=== PATIENT | female | born 1975 | race Caucasian/White ===

== ENCOUNTER 2017-05-06 08:50 | Day surgery (SDC) | payer MEDICARE, OTHER ==
[~2017-05-06] VITALS: Ht 165.1 cm; Wt 149.7 kg
[~2017-05-06 08:50] MED LIST: ACETAMINOPHEN-1 EAC1 PO; ASPIRIN EC81 MG PO; ATIVAN1 MG PO; AUGMENTIN 875-1 EACH PO; BREO ELLIPTA 21 EACH IH; CALCIUM500 MG PO; CETIRIZINE HCL10 MG PO; DAILY MULTIPLE1 EACH PO; DULERA 100 MCG/13 GM INH; EFFEXOR XR150 MG PO; FUROSEMIDE40 MG PO; HYDROXYZINE HCL25 MG PO; LATUDA80 MG PO; LEVOTHYROXINE100 MCG PO; LISINOPRIL-HCT1 EAC2 PO; LOMOTIL TABLET1 EACH PO; LORAZEPAM1 MG PO; METOCLOPRAMIDE10 MG PO; MIRENA1 EACH IY; MIRTAZAPINE45 MG PO; ONDANSETRON ODT4 MG SL; POTASSIUM CHLO20 ME1 PO; PROMETHAZINE HC25 M1 PO; SIMBRINZA 1%-0.28 ML OPTH; SPIRIVA18 MCG INH; VITAMIN C500 M4 PO
--- NOTE | 2017-05-06 12:41 | NUR ---
05/06/17 1241 Mike Melton 1234: O2 CHANGED TO BB.
--- NOTE | 2017-05-06 13:28 | NUR ---
PT REPORTS "SOME NAUSEA THAT ISNT GOING AWAY" IV MED GIVEN. PT RESTING IN BED WATCHING TV.
[2017-05-06] MEDS ORDERED: NORCO 5-325 TA1 EACH PO (13:32)
--- NOTE | 2017-05-06 13:51 | NUR ---
PT STATES "THE NAUSEA IS A LITTLE BETTER" PT UP TO THE BATHROOM WITH FRANCESCA ASST. TOLERATED WELL WITH A LARGE VOID NOTED. PT BACK TO BED AND C/O 7/10 PAIN IN ABD. IV MED GIVEN AND PT RESTING IN BED.
--- NOTE | 2017-05-06 14:31 | NUR ---
PT DENIES NAUSEA. PO PAIN MEDS GIVEN AFTER TOLERATING WATER AND CHICKEN NOODLE SOUP.
--- NOTE | 2017-05-07 08:00 | OR ---
[facility] [address] [place], [place] [address] Signed DATE OF PROCEDURE: 05/06/17 PREOPERATIVE DIAGNOSIS: Chronic cholecystitis. POSTOPERATIVE DIAGNOSES Chronic cholecystitis. Cholesterolosis. PROCEDURE Laparoscopic cholecystectomy without intraoperative cholangiogram. ESTIMATED BLOOD LOSS: None. FINDINGS Joyce had fatty infiltration of her liver. She also had obvious cholesterolosis of the gallbladder. We were not able to pass the intraoperative cholangiocatheter through the valves of Leon, although we made multiple attempts and several nicks on the cystic duct. Consequently, we abandoned the intraoperative cholangiogram. INDICATIONS Joyce is a 41-year-old female at 5 foot 5 inches, 315 pounds. She has a body mass index of 52. At one point, she weighed over 400 pounds. She has been living over in [place], [place]. At that time, she was having trouble with right upper quadrant abdominal pain and ended up with a negative ultrasound. The HIDA scan, however, was positive. The surgeon asked her to lose weight before an elective surgery. In the meantime, she moved out to [facility] and lost weight and is down to 315 pounds. She continues to have symptoms associated with the right upper quadrant radiating through to her back. She said it is worse after meals. She states fats bad and so is pork. She had been to her primary care provider. A repeat ultrasound w a s negative. She was then asked to see me as a local general surgeon. We sent her for repeat HIDA scan and her gallbladder did not contract whatsoever. Eating the fatty meal reproduced her symptoms. I met with Joyce in the office and I gave her a pamphlet on the gallbladder. We discussed its location and function. We discussed laparoscopic versus open cholecystectomy. She understands expected intra and postop course. There is risk of surgery including, but not limited to bleeding, infection, scarring, change in contour of the skin, damage to bowel, damage to main bile duct, and incisional hernias. She had expressed understanding and wished to proceed. PROCEDURE NOTE Joyce was taken into our operating room and placed in the supine position under genera l endotracheal tube anesthesia. She was given preoperative antibiotics along with subcutaneous heparin. SCDs were utilized. She was then prepped and draped in the usual Electronically Signed By: CARMENZA GARVIN MD 05/07/17 0800 PATIENT NAME: JOYCE APARICIO OPERATIVE REPORT DATE OF : 71 PHYSICIAN: CARMENZA GARVIN MD REPORT #: [id number] REPORT IS CONFIDENTIAL AND NOT TO BE RELEASED WITHOUT AUTHORIZATION [facility] [address] [place] [place], [place] [address] Signed sterile fashion. All trocars were then placed in usual positions under direct visualization of camera without difficulty. The gallbladder was grasped and elevated in the right upper quadrant. We made a small hole in the side of the gallbladder and suctioned out dark green bile to better access her triangle of Calot. The triangle of Calot was deep underneath the liver. It took a few minutes to dissect out the triangle of Calot. A clip had been placed on the cystic artery and it had been divided. We opened the cystic duct in 3 separate locations and each time we encountered the valves of Vaughn wilson. We made multiple attempts, we could not get our intraoperative cholangiocatheter pass through this area. Consequently, we secured the cystic duct stump with a PDS Endoloop and 2 clips were placed across the cystic duct stump to erin its location. After this, the gallbladder was carefully removed from the gallbladder fossa with the help of the cautery and placed into an EndoCatch bag. We noticed a little blood coming where the intraoperative cholangiocatheter had been inserted through the abdominal wall. There was just a tiny hematoma next to the peritoneum. We cauterized that area with good hemostasis. We looked back at that area several times throughout the case. No additional swelling or bleeding was noted. We then irrigated out the right upper quadrant and suctioned out the area until clear. We used our laparoscopic suturing device then to pass 0 Vicryl suture on either side of the fascia of the subxiphoid trocar site. This was tied down to close this fascia primarily. The gallbladder had been placed in to an EndoCatch bag and it was taken out through the supraumbilical trocar site. All the other trocars were removed. All the gas was allowed to escape. We used interrupted simple and [id number] 0 Vicryl suture to close the fascia of the supraumbilical trocar site. Each trocar site was then infiltrated with local anesthetic. Each trocar site was irrigated and suctioned out until clear. The skin and dermis of each trocar site was then closed with interrupted 3-0 subcuticular Monocryl sutures. Dry gauze and tape was then applied. The gallbladder had been opened on the back table by a circulating nurse. She had significant cholesterolosis. Joyce was then awakened from anesthesia, extubated in the OR, taken to recovery room in stable condition. MD GHULAM Watts/Modl /[id number] Electronically Signed By: CARMENZA GARVIN MD 05/07/17 0800 PATIENT NAME: JOYCE APARICIO OPERATIVE REPORT DATE OF : 71 PHYSICIAN: CARMENZA GARVIN MD REPORT #: [id number] REPORT IS CONFIDENTIAL AND NOT TO BE RELEASED WITHOUT AUTHORIZATION [address], [place] [address] Signed cc: Leona Sutton PA-C Electronically Signed By: CARMENZA GARVIN MD 05/07/17 0800 PATIENT NAME: JOYCE APARICIO OPERATIVE REPORT DATE OF : 71 PHYSICIAN: CARMENZA GARVIN MD REPORT #: [id number] REPORT IS CONFIDENTIAL AND NOT TO BE RELEASED WITHOUT AUTHORIZATION
== END 2017-05-06 15:10 | disposition home or self-care (01) ==
LOC: DS 08:50
PROVIDERS: Colon & Rectal Surgery
PROC: BF12YZZ Fluoroscopy of Gallbladder using Other Contrast (ICD-10-PCS; 2017-05-06)
PROC: 0FT44ZZ Resection of Gallbladder, Percutaneous Endoscopic Approach (ICD-10-PCS; principal; 2017-05-06 09:45)
DX: K81.1 Chronic cholecystitis (principal); E03.9 Hypothyroidism, unspecified; J44.9 Chronic obstructive pulmonary disease, unspecified; E66.9 Obesity, unspecified; G93.2 Benign intracranial hypertension; K58.9 Irritable bowel syndrome, unspecified; Z86.718 Personal history of other venous thrombosis and embolism; Z86.711 Personal history of pulmonary embolism; Z85.828 Personal history of other malignant neoplasm of skin; Z98.890 Other specified postprocedural states; Z87.891 Personal history of nicotine dependence; Z79.899 Other long term (current) drug therapy; Z91.040 Latex allergy status; Z88.8 Allergy status to other drugs, medicaments and biological substances; Z68.43 Body mass index [BMI] 50.0-59.9, adult
CPT/HCPCS: 00790; 88304; J0330; J0690; J1100; J1644; J1885; J2250; J2405; J2550; J2704; J2710; J2765; J3010; J7120

== ENCOUNTER 2017-05-07 14:28 | Emergency (ER) | payer MEDICARE, OTHER ==
[~2017-05-07] VITALS: Ht 165.1 cm; Wt 149.7 kg
[~2017-05-07 14:28] MED LIST changes: +NORCO 5-325 TA1 EACH PO
== END 2017-05-07 14:53 | disposition home or self-care (01) ==
LOC: ED 14:28
DX: K91.89 Other postprocedural complications and disorders of digestive system (principal); Z00.8 Encounter for other general examination

== ENCOUNTER 2021-09-29 09:40 | Emergency (ER) | payer MEDICARE, OTHER ==
[~2021-09-29] VITALS: Ht 165.1 cm; Wt 167.8 kg
[~2021-09-29 09:40] MED LIST changes: +KLOR-CON 1010 MEQ PO
--- OUTSIDE RECORDS SUMMARY | 2021-09-29 09:44 | XMS ---
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 ED/UCC VISIT TRACKING (12 MO.) 09/29/2021 09:[address] [facility] [place] TYPE: Emergency COMPLAINT: - EAR PAIN INPATIENT VISIT TRACKING (12 MO.) No inpatient visits to display in this time frame [email or web address]
[2021-09-29] MEDS ORDERED: ONDANSETRON ODT4 MG PO (10:03)
[2021-09-29] MEDS ORDERED: PRAZOSIN HCL1 MG PO (10:04)
[2021-09-29] MEDS ORDERED: TIZANIDINE HCL4 MG PO (10:04)
[2021-09-29] MEDS ORDERED: DESVENLAFAXINE50 M3 PO (10:04)
[2021-09-29] MEDS ORDERED: LATUDA80 MG PO (10:04)
[2021-09-29] MEDS ORDERED: ACETAZOLAMIDE125 MG PO (10:05)
[2021-09-29] MEDS ORDERED: LORAZEPAM1 MG PO (10:05)
[2021-09-29] MEDS ORDERED: SPIRONOLACTONE25 MG PO (10:05)
[2021-09-29] MEDS ORDERED: VERAPAMIL SR240 MG PO (10:06)
[2021-09-29] MEDS ORDERED: HYDROCODON-ACE1 EA11 PO (10:08)
[2021-09-29] MEDS ORDERED: AMOXICILLIN500 MG PO (10:08)
== END 2021-09-29 10:19 | disposition home or self-care (01) ==
LOC: ED 09:40
DX: H66.91 Otitis media, unspecified, right ear (principal); Z86.718 Personal history of other venous thrombosis and embolism; K58.9 Irritable bowel syndrome, unspecified; Z87.891 Personal history of nicotine dependence; Z91.048 Other nonmedicinal substance allergy status; Z91.040 Latex allergy status; Z88.5 Allergy status to narcotic agent; Z88.8 Allergy status to other drugs, medicaments and biological substances; Z88.7 Allergy status to serum and vaccine; Z91.018 Allergy to other foods; Z79.899 Other long term (current) drug therapy
CPT/HCPCS: 99282

== ENCOUNTER 2023-02-05 06:52 | Day surgery (SDC) | payer MEDICARE, OTHER ==
[2023-01-28 15:40] VITALS: BP 169/97
[~2023-02-05] VITALS: Ht 162.6 cm; Wt 165.4 kg
--- NOTE | ~2023-02-05 | OR ---
[facility] [address] [place], [place] [address] Draft DATE OF OPERATION: 02/05/2023 SURGEON: Isac Julien MD Patient of Dr. Julien. PREOPERATIVE DIAGNOSIS: Missing IUD strings, possible malposition of IUD. POSTOPERATIVE DIAGNOSIS: Missing IUD strings. PROCEDURE: Hysteroscopic removal of IUD. SINGLE END SEWER: Christian Smith DO ANESTHESIA: Monitored anesthesia care. ESTIMATED BLOOD LOSS: Less than 5 mL. SPECIMEN: None. DRAINS: None. PACKING: None. FINDINGS: Normal external genitalia. Normal vagina. Normal small cervix. No IUD string seen in the os. On hysteroscopic exam, the IUD was noted to be in the lower uterine segment and upper cervical canal with twisted strings around the base of the IUD. COMPLICATIONS: None. PATIENT NAME: JOYCE APARICIO OPERATIVE REPORT DATE OF : 71 REPORT #: [id number] PHYSICIAN: ISAC JULIEN MD PCP: DANIEL PERKINS MD REPORT IS CONFIDENTIAL AND NOT TO BE RELEASED WITHOUT AUTHORIZATION [facility] [address] [place] [id number] Draft DESCRIPTION OF PROCEDURE: The patient was brought to the operating room, placed in the supine position. After adequate general anesthesia was obtained, she was placed in dorsal lithotomy position, prepped and draped in usual sterile fashion. Zarco was emptied by straight catheterization. A weighted speculum was placed in the vagina, Aditi placed in the upper vagina and the cervix could be seen, which was very high in the pelvis and because of the patient's size it was difficult to visualize. The anterior lip of the cervix was finally seen and grasped with a single-tooth tenaculum. The posterior lip of the cervix was grasped with an Allis clamp. The cervix was then serially dilated and the hysteroscope placed in the cervical os and gently was passed through the cervical canal using the saline to help further dilate the cervix. Upon reaching the upper cervix and lower uterine segment before reaching the uterine cavity, the IUD strings were seen, so a grasper was inserted through the hysteroscope and the strings grasped with the grasper under direct visualization and the grasper slowly removed and the hysteroscope then slowly removed watching to make sure that the IUD came with the hysteroscope. This did remove the IUD from the uterus and cervix. The tenaculum and Allis clamp were then removed from the cervix. The cervix observed and noted to have good hemostasis. All other instruments were removed from the vagina. The patient tolerated the procedure well, went to recovery room in good condition. The sponge and instrument count were correct at the end of the procedure. The system had 240 mL of fluid loss, most thought to be under the . Pressure was set at 80 mmHg. The patient tolerated the procedure well, went to recovery room in good condition. The sponge and instrument counts were correct at the end of the procedure. MD MARCUS Cristobal/SHARON /[id number] cc: Daniel Perkins MD Copies: DANIEL PERKINS DMD PATIENT NAME: JOYCE APARICIO OPERATIVE REPORT DATE OF : 71 REPORT #: [id number] PHYSICIAN: ISAC JULIEN MD PCP: DANIEL PERKINS MD REPORT IS CONFIDENTIAL AND NOT TO BE RELEASED WITHOUT AUTHORIZATION [address] [address] Draft ~ PATIENT NAME: JOYCE APARICIO OPERATIVE REPORT DATE OF : 71 REPORT #: [id number] PHYSICIAN: ISAC JULIEN MD PCP: DANIEL PERKINS MD REPORT IS CONFIDENTIAL AND NOT TO BE RELEASED WITHOUT AUTHORIZATION
[~2023-02-05 06:52] MED LIST changes: +ACETAZOLAMIDE125 MG PO; +AMOXICILLIN500 MG PO; +DESVENLAFAXINE50 M3 PO; +HYDROCODON-ACE1 EA11 PO; +LEVOTHYROXINE50 MC1 PO; +ONDANSETRON ODT4 MG PO; +OSTERA TABLET1 EACH PO; +PRAZOSIN HCL1 MG PO; +SIMBRINZA 1%-0.28 M1 OP; +SKYRIZI PE150 MG/1 M SQ; +SPIRONOLACTONE25 MG PO; +TIZANIDINE HCL4 MG PO; +TROKENDI XR100 MG PO; +VENTOLIN HFA18 GM INH; +VERAPAMIL SR240 MG PO; +XALATAN2.5 ML OPTH; +ZANAFLEX4 M1 PO
[2023-02-05 07:04] VITALS: BP 158/93
[2023-02-05 10:24] VITALS: BP 124/73
--- NOTE | 2023-02-05 10:37 | NUR ---
02/05/23 1037 Sheets,Tabitha 0958 PT ARRIVED TO PACU AWAKE AND TALKING TO RN. PT REPORTS 5/10 PAIN. AND NO NAUSEA. PLAN OF CARE DISCUSSED. 0935 O2 REMOVED AND HOB INCREASED. 9820-7078 MEDICATION GIVEN PER EMAR, PT SIPPING WATER AND EATING APPLESAUCE. PT CONTINUES TO DENY CONCERNS. 1005 PT REPORT PAIN IS BETTER 3/10. PT GETTING DRESSED AND RIDE CALLED 1018 DC INSTRUCTIONS GIVEN WITH RX. ALL QUESTIONS ANSWERED. PT DC VIA WC.
== END 2023-02-05 10:18 | disposition home or self-care (01) ==
LOC: OPS 06:52 → DS 06:52 → OPS 07:30 → DS 07:30 → OPS 09:00
PROVIDERS: ATTEND General Practice
PROC: 0UPD8HZ Removal of Contraceptive Device from Uterus and Cervix, Via Natural or Artificial Opening Endoscopic (ICD-10-PCS; principal; 2023-02-05 09:00)
DX: T83.32XA Displacement of intrauterine contraceptive device, initial encounter (principal); Y76.8 Miscellaneous obstetric and gynecological devices associated with adverse incidents, not elsewhere classified; E03.9 Hypothyroidism, unspecified; K21.9 Gastro-esophageal reflux disease without esophagitis; J44.9 Chronic obstructive pulmonary disease, unspecified; Z87.891 Personal history of nicotine dependence; Z88.7 Allergy status to serum and vaccine; Z88.5 Allergy status to narcotic agent; Z79.890 Hormone replacement therapy; Z79.899 Other long term (current) drug therapy
CPT/HCPCS: A9270; J0131; J1644; J1885; J2250; J2405; J2704; J3010

== ENCOUNTER 2024-05-29 18:07 | Inpatient (IN) | payer MEDICARE, OTHER ==
[~2024-05-29] VITALS: Ht 162.6 cm; Wt 156.3 kg
[2024-05-29] MEDS ORDERED: ALPRAZOLAM0.5 MG PO (18:34)
[2024-05-29 18:44] LABS: EOSINOPHILS 1.7 % (0-6); HEMATOCRIT 44.4 % (35.0-50.0); HEMOGLOBIN 15.7 g/dL (12.0-18.0); LYMPHOCYTES 26.9 % (24-44); MCH 35.6 (27-36); MCHC 35.5 g/dl (30-36); MCV 100.4 fl (81-99); MONOCYTES 8.1 % (0-12); NEUTROPHILS 62.3 % (39-80); PLATELET COUNT 336 K/uL (140-440); RBC 4.42 M/ul (4.3-5.7); RDW 13.8 (10.5-15.0)
[2024-05-29] MEDS ORDERED: dilTIAZem HCL 25 MG/5 ML VIAL IV ONE ×3 (18:45→19:45)
[2024-05-29] MEDS ORDERED: APIXABAN 5 MG TAB PO ONE (19:00)
[2024-05-29 19:04] LABS: ALBUMIN 3.8 g/dL (3.4-5.0); ALBUMIN/GLOBULIN RATIO 0.88 (1.1-2.4); ANION GAP 14.8 (7-21); BILIRUBIN, TOTAL 1.1 ng/dL (0.2-1.0); BUN/CREATININE RATIO 13.33 (6.0-28.6); CALCIUM 9.3 mg/dL (8.5-10.1); CREATININE, SERUM 1.2 mg/dL (0.55-1.02); POTASSIUM 2.8 mmol/L (3.5-5.1); PROTEIN, TOTAL 8.1 g/dL (6.4-8.2)
[2024-05-29] MEDS ORDERED: POTASSIUM CHLORIDE 10 MEQ TABCR PO ONE (19:30)
[2024-05-29] MEDS ORDERED: DILTIAZEM HCl/D5W 125 ML IV ONE (19:45)
[2024-05-29] MEDS ORDERED: POTASSIUM CHLORIDE 10 MEQ/100 ML BAG IV ONE (19:45)
[2024-05-29 19:51] LABS: BILIRUBIN, URINE POSITIVE (negative); BLOOD/HGB, URINE NEGATIVE (Negative); KETONE, URINE TRACE (Negative); LEUK ESTERASE, URINE NEGATIVE (negative); NITRITE, URINE POSITIVE (negative); PH, URINE 6.5 (5-7)
[2024-05-29 19:59] LABS: CRYSTALS, URINE NONE SEEN (0-1+); EPITHELIAL CELLS, URINE SQUAMOUS 3+ /lpf (0-1+)
[2024-05-29 20:00] LABS: BACTERIA, URINE 2+ /hpf (negative); CASTS, URINE HYALINE 2+ \\lpf; COLLECTION TYPE, URINE CLEAN CATCH; REFLEX CULTURE, URINE No (No)
[2024-05-29] MEDS ORDERED: ALBUTEROL SULFATE 8 GM INH INH PRN (20:30)
[2024-05-29] MEDS ORDERED: INHALER, ASSIST DEVICES 1 EACH SPACER MISC ONE (20:30)
[2024-05-29] MEDS ORDERED: LORazepam 1 MG TAB PO PRN (20:30)
[2024-05-29] MEDS ORDERED: MAGNESIUM SULFATE 2 GM/50 ML BAG IV SCH (20:30)
[2024-05-29] MEDS ORDERED: ondansetron HCL 4 MG/2 ML VIAL IV ONE (20:45)
[2024-05-29 20:53] LABS: TSH, 3RD GENERATION 6.067 uIU/mL (0.358-3.740)
[2024-05-29] MEDS ORDERED: TIZANIDINE HCL 4 MG TABLET PO SCH (21:00)
--- NOTE | 2024-05-29 21:50 | NUR ---
PT ADMITTED TO ICU ROOM 126 FOR AFIB RVR. PT IS AWAKE AND ALERT, ARRIVES ON CARDIZEM DRIP AT 20MG/HR WITH HR AFIB 120-130'S. PT DENIES PAIN AT THIS TIME. REPORTS HR UP TO 200'S TODAY AT HOME ON HER WATCH SO SHE CAME IN TO ED. REPORTS HAVING SOME CHEST PAIN AND DIZZINESS WHEN HR WAS HIGHER BUT DENIES SX AT THIS TIME. PLAN OF CARE FOR THE NIGHT DISCUSSED WITH PT INCLUDING CARDIZEM DRIP, NEED FOR ADDITIONAL IV ACCESS, ELECTROLYTE REPLACEMENT AND TRANSITION TO ORAL CARDIZEM AT SOME POINT- PT HAS NO QUESTIONS AT THIS TIME.
[2024-05-29 22:09] VITALS: BP 153/108
[2024-05-29 22:11] VITALS: BP 99/67
[2024-05-29 22:30] VITALS: BP 151/77
[2024-05-29] MEDS ORDERED: dilTIAZem HCL 30 MG TAB PO SCH (22:45)
[2024-05-29] MEDS ORDERED: MELATONIN 3 MG TAB PO PRN (22:45)
[2024-05-29 23:00] VITALS: BP 133/95
[2024-05-29 23:31] LABS: ANION GAP 15.3 (7-21); BUN/CREATININE RATIO 15.7 (6.0-28.6); CALCIUM 9.6 mg/dL (8.5-10.1); CREATININE, SERUM 1.21 mg/dL (0.55-1.02); POTASSIUM 3.3 mmol/L (3.5-5.1)
[2024-05-29] MEDS ORDERED: POTASSIUM CHLORIDE 10 MEQ/100 ML BAG IV SCH (23:45)
[2024-05-30] VITALS (9 sets, daily range): BP systolic 104–136; BP diastolic 63–95
--- NOTE | 2024-05-30 00:07 | NUR ---
FLOAT NURSE IN TO PLACE USG IV.
--- NOTE | 2024-05-30 00:19 | NUR ---
20G, 1.75" USIV PLACED IN LFA @ 0.5CM DEPTH, 1 ATTEMPT. PT TOLERATED WELL, GOOD BLOOD RETURN, FLUSHED WELL.
--- NOTE | 2024-05-30 01:42 | NUR ---
CARDIZEM DRIP TURNED DOWN TO 15MG/HR.
--- NOTE | 2024-05-30 01:58 | NUR ---
PT UP TO BR WITH ASSIST, HR UP TO 130'S WHEN UP. CARDIZEM DRIP REMAINS AT 15MG/HR.
[2024-05-30] MEDS ORDERED: dilTIAZem HCL 30 MG TAB PO SCH (02:00)
--- NOTE | 2024-05-30 02:23 | NUR ---
HR DROPPED DOWN TO 60'S WITH PAUSE, CARDIZEM DRIP PLACED ON STANDBY. PT WAS DOZING, AWAKENS TO NOISE, DENIES NEEDS, BACK TO SLEEP. HR 70'S, AFIB/FLUTTER, WILL CONT TO MONITOR.
--- NOTE | 2024-05-30 03:40 | NUR ---
HR REMAINS 50'S SINUS RHYTHM. PT RESTING WITH EYES CLOSED, RESP EVEN AND REGULAR.
--- NOTE | 2024-05-30 04:02 | NUR ---
PT AWAKENS FOR NEXT BAG OF KCL. ASSESSMENT DONE. PT DENIES CHEST PAIN OR OTHER SX. CALL LIGHT IN REACH, BACK TO SLEEP.
[2024-05-30 05:34] LABS: EOSINOPHILS 1.8 % (0-6); HEMATOCRIT 40.2 % (35.0-50.0); LYMPHOCYTES 23.3 % (24-44); MCHC 34.7 g/dl (30-36); MCV 100.8 fl (81-99); MONOCYTES 10.7 % (0-12); NEUTROPHILS 63.2 % (39-80); PLATELET COUNT 315 K/uL (140-440); RBC 3.99 M/ul (4.3-5.7)
[2024-05-30 05:42] LABS: ANION GAP 11.9 (7-21); BUN/CREATININE RATIO 15.51 (6.0-28.6); CALCIUM 8.9 mg/dL (8.5-10.1); CREATININE, SERUM 1.16 mg/dL (0.55-1.02); MAGNESIUM 2.5 mg/dL (1.8-2.4); POTASSIUM 3.9 mmol/L (3.5-5.1)
[2024-05-30] MEDS ORDERED: LEVOTHYROXINE SODIUM 50 MCG TAB PO SCH (07:00)
--- NOTE | 2024-05-30 07:30 | NUR ---
REPORT RECEIVED. PATIENT AMBULATED TO BR, IS STEADY ON FEET. MONITOR SHOWS NSR.
--- NOTE | 2024-05-30 08:00 | NUR ---
ASSESSMENT DONE. PATIENT DENIES PAIN. TALKED WITH PATIENT ABOUT POSSIBLE DISCHARGE TODAY. PATIENT SAID DR. QUINTANA TALKED WITH HER ABOUT THIS EARILER. WILL GIVE PO MEDS THIS AM AND CONTINUE TO MONITOR VITAL SIGNS. SITTING UP IN BED READY FOR BREAKFAST.
[2024-05-30] MEDS ORDERED: ALBUTEROL SULFATE 0.083% 3 ML VIAL INH PRN (08:30)
[2024-05-30] MEDS ORDERED: MAGNESIUM REPLACEMENT PROTOCOL ORAL/IV PO/IV SCH (09:00)
[2024-05-30] MEDS ORDERED: POTASSIUM REPLACEMENT PROTOCOL ORAL/IV PO/IV SCH (09:00)
[2024-05-30] MEDS ORDERED: acetaZOLAMIDE 250 MG TAB PO SCH (09:00)
[2024-05-30] MEDS ORDERED: APIXABAN 5 MG TAB PO SCH (09:00)
[2024-05-30] MEDS ORDERED: atenoloL 25 MG TAB PO SCH (09:00)
[2024-05-30] MEDS ORDERED: CETIRIZINE HCL 10 MG TAB PO SCH (09:00)
--- NOTE | 2024-05-30 09:00 | NUR ---
ROUTINE MEDS GIVEN. PT VERY TALKATIVE.
--- NOTE | 2024-05-30 09:37 | NUR ---
SITTING UP IN BED WATCHING TV. DENIES PROBLEMS.
--- NOTE | 2024-05-30 10:30 | NUR ---
C/O SLIGHT NAUSEA. PATIENT STATES THE ELIQUIS MAKES HERE NEAUSEATED. SHE SAID SHE TOLD THE DOCTOR THIS WHEN HE SAW HER EARLIER THIS MORNING.
--- NOTE | 2024-05-30 10:42 | NUR ---
SPOKE TO PATIENT ABOUT THE DC PLAN. THE PATIENT HAS FRIENDS AVAILABLE TO HELP NEEDED. PATIENT RENTS A HOUSE AND CAN AFFORD FOOD AND HOUSING. PATIENT USES A WALKER AND JUST HAD A SLEEP STUDY AND IS GETTING A BIPAP MACHINE FROM HER PCP IN THE NEAR FUTURE. PATIENT'S DEMOGRAPHICS ARE CORRECT. PATIENT CAN DO HER OWN ADLS.PATIENT PLANS TO GO HOME WHEN THE PATIENT IS DISCHARGED. PATIENT HAS NO DC HEEDS AT THIS.
[2024-05-30] MEDS ORDERED: ELIQUIS5 MG PO (11:08)
[2024-05-30] MEDS ORDERED: ATENOLOL25 MG PO (11:08)
--- NOTE | 2024-05-30 11:45 | NUR ---
DISCHARGE ORDERS RECEIVED. REMAINS IN NSR. DENIES PAIN. FRIENDS IN ROOM.
[2024-05-30] MEDS ORDERED: ONDANSETRON ODT4 MG PO (12:00)
[2024-05-30] MEDS ORDERED: PHARMACY RENAL DOSE ADJUSTMENT 1 DOSE MISC PO SCH (12:00)
--- NOTE | 2024-05-30 12:00 | NUR ---
MONITOR AND IV SITES X 2 DC'D. CATH INTACT. UP TO BR.
--- NOTE | 2024-05-30 12:15 | NUR ---
DISCHARGE INSTRUCTIONS GIVEN WITH PATIENT UNDERSTANDING.
--- NOTE | 2024-05-30 12:30 | NUR ---
DISCHARGED TO HOME, TAKEN OUT BY NURSING STAFF AND ACCOMP BY FAMILY /FRIENDS.
--- NOTE | 2024-05-30 12:54 | NUR ---
UR CLINICAL REVIEW: 2 MN FOR VERSALUS-MEETS INPT CRITERIA DUE TO [employer] MEDICARE INPT 05/29/24 @ 2018 ORDER MATCHES REG NO AUTH REQUIRED PER MEDICARE GUIDELINES DISCHARGE HOME WHEN STABLE
--- NOTE | 2024-05-31 19:55 | EKG ---
[facility] [address] [facility] [place], [place] [address] Signed Atrial fibrillation with rapid ventricular response Left axis deviation Moderate voltage criteria for LVH, may be normal variant ( R in aVL , Homeland product ) Marked ST abnormality, possible lateral subendocardial injury Abnormal ECG No previous ECGs available Confirmed by Maria Fernanda Hunt MD ([id number]) on 05/31/2024 7:55:13 PM Electronically Signed By: MARIA FERNANDA HUNT MD 05/31/241954 PATIENT NAME: JOYCE APARICIO Electrocardiogram DATE OF : 71 PHYSICIAN: MARIA FERNANDA HUNT MD REPORT #: [id number] REPORT IS CONFIDENTIAL AND NOT TO BE RELEASED WITHOUT AUTHORIZATION
== END 2024-05-30 12:30 | disposition home or self-care (01) | DRG 309 ==
LOC: ED 18:07 → CCU 20:18
PROVIDERS: Emergency Medicine; ADMIT Student in an Organized Health Care Education/Training Program; ATTEND Student in an Organized Health Care Education/Training Program
DX: I48.91 Unspecified atrial fibrillation (principal); Z68.44 Body mass index [BMI] 60.0-69.9, adult; J44.9 Chronic obstructive pulmonary disease, unspecified; K58.9 Irritable bowel syndrome, unspecified; L40.9 Psoriasis, unspecified; F43.10 Post-traumatic stress disorder, unspecified; F41.9 Anxiety disorder, unspecified; G43.909 Migraine, unspecified, not intractable, without status migrainosus; E87.6 Hypokalemia; E83.42 Hypomagnesemia; G93.2 Benign intracranial hypertension; F60.3 Borderline personality disorder; E66.9 Obesity, unspecified; Z91.040 Latex allergy status; Z88.5 Allergy status to narcotic agent; Z88.8 Allergy status to other drugs, medicaments and biological substances; Z91.018 Allergy to other foods; Z86.718 Personal history of other venous thrombosis and embolism; Z86.711 Personal history of pulmonary embolism; Z79.01 Long term (current) use of anticoagulants; Z88.7 Allergy status to serum and vaccine; Z79.811 Long term (current) use of aromatase inhibitors; Z87.891 Personal history of nicotine dependence; Z90.49 Acquired absence of other specified parts of digestive tract; Z98.890 Other specified postprocedural states
CPT/HCPCS: 36415; 70450; 71045; 80048; 80053; 81001; 83735; 84439; 84443; 84484; 85025; 93005; 93010; 96374; 96375; 96376; 99285-25; A9270; A9270-GY; J2405; J3475; J3480

== ENCOUNTER 2024-07-28 08:02 | Emergency (ER) | payer MEDICARE, OTHER ==
[~2024-07-28] VITALS: Ht 162.6 cm; Wt 159.0 kg
--- NOTE | ~2024-07-28 | EKG ---
[facility] [address] [facility] [place], [place] [address] Draft EK completed, results pending confirmation PATIENT NAME: JAYASHREE APARICIOKHUSHBU JACOBE Electrocardiogram DATE OF : 71 PHYSICIAN: PRELIMINARY REPORT #: [id number] REPORT IS CONFIDENTIAL AND NOT TO BE RELEASED WITHOUT AUTHORIZATION
[~2024-07-28 08:02] MED LIST changes: +ALPRAZOLAM0.5 MG PO; +ATENOLOL25 MG PO; +ELIQUIS5 MG PO
[2024-07-28] MEDS ORDERED: LOSARTAN POTASS25 MG PO (08:16)
[2024-07-28 09:00] LABS: HEMATOCRIT 44.9 % (35.0-50.0); HEMOGLOBIN 15.4 g/dL (12.0-18.0); MCHC 34.3 g/dl (30-36); MCV 93.1 fl (81-99); PLATELET COUNT 325 K/uL (140-440); RBC 4.82 M/ul (4.3-5.7); RDW 13.2 (10.5-15.0)
[2024-07-28] MEDS ORDERED: dilTIAZem HCL 25 MG/5 ML VIAL IV ONE (09:00)
[2024-07-28 09:11] LABS: BASOPHILS, MANUAL DIFF 2; EOSINOPHILS, MANUAL DIFF 15; LYMPHOCYTES, MANUAL DIFF 11; MONOCYTES, MANUAL DIFF 2; NEUTROPHILS, MANUAL DIFF 70
[2024-07-28 09:37] LABS: ALBUMIN 3.7 g/dL (3.4-5.0); ALBUMIN/GLOBULIN RATIO 0.82 (1.1-2.4); ANION GAP 15.3 (7-21); BILIRUBIN, TOTAL 0.4 ng/dL (0.2-1.0); BUN/CREATININE RATIO 18.55 (6.0-28.6); CREATININE, SERUM 0.97 mg/dL (0.55-1.02); MAGNESIUM 1.9 mg/dL (1.8-2.4); POTASSIUM 4.3 mmol/L (3.5-5.1); PROTEIN, TOTAL 8.2 g/dL (6.4-8.2)
[2024-07-28] MEDS ORDERED: ALBUTEROL/IPRATROPIUM 3 ML NEB INH ONE (10:30)
[2024-07-28 10:40] VITALS: BP 130/94
--- NOTE | 2024-07-28 19:36 | EKG ---
[facility] [address] [facility] [place] [address] Signed Atrial fibrillation with rapid ventricular response Left axis deviation Minimal voltage criteria for LVH, may be normal variant ( Jeff product ) Abnormal ECG When compared with ECG of 28-JUL-2024 08:09, (Unconfirmed) No significant change was found Confirmed by Maria Fernanda Hunt MD ([id number]) on 07/28/2024 7:35:48 PM Electronically Signed By: MARIA FERNANDA HUTN MD 07/28/24 193 PATIENT NAME: JOYCE APARICIO Electrocardiogram DATE OF : 71 PHYSICIAN: MARIA FERNANDA HUNT MD REPORT #: [id number] REPORT IS CONFIDENTIAL AND NOT TO BE RELEASED WITHOUT AUTHORIZATION
--- NOTE | 2024-07-28 19:36 | EKG ---
[facility] [address] [facility] [place] [address] Signed Sinus bradycardia with 1st degree AV block Otherwise normal ECG Confirmed by Maria Fernanda Hunt MD ([id number]) on 07/28/2024 7:36:06 PM Electronically Signed By: MARIA FERNANDA HUNT MD 07/28/241935 PATIENT NAME: JOYCE APARICIO Electrocardiogram DATE OF : 71 PHYSICIAN: MARIA FERNANDA HUNT MD REPORT #: [id number] REPORT IS CONFIDENTIAL AND NOT TO BE RELEASED WITHOUT AUTHORIZATION
== END 2024-07-28 10:40 | disposition home or self-care (01) ==
LOC: ED 08:02
PROVIDERS: Emergency Medicine
DX: I48.91 Unspecified atrial fibrillation (principal); F43.10 Post-traumatic stress disorder, unspecified; Z79.899 Other long term (current) drug therapy; Z91.048 Other nonmedicinal substance allergy status; Z88.7 Allergy status to serum and vaccine; Z91.018 Allergy to other foods; Z91.040 Latex allergy status; Z88.8 Allergy status to other drugs, medicaments and biological substances; Z87.891 Personal history of nicotine dependence
CPT/HCPCS: 36415; 71045; 80053; 83735; 84484; 85025; 93005; 93010; 94640; 96374; 99285-25

== ENCOUNTER 2024-08-02 06:55 | Emergency (ER) | payer MEDICARE, OTHER ==
[~2024-08-02] VITALS: Ht 162.6 cm; Wt 164.0 kg
[~2024-08-02 06:55] MED LIST changes: +LOSARTAN POTASS25 MG PO
--- OUTSIDE RECORDS SUMMARY | 2024-08-02 07:02 | XMS ---
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 - 2 Visits in 30 Days CARE PROVIDERS -, [facility]: [facility] [place] PHONE: [phone] -, [place]- [facility]: [facility] PHONE: [phone] Care Guidelines exist for the following facilities: [facility] ( 02/14/2020 ) [facility] VISIT COUNT (12 MO.) 3 C[facility] Eli TOTAL 3 NOTE: Visits indicate total known visits. ED/UCC VISIT TRACKING (12 MO.) 08/02/2024 06:56 [facility] TYPE: Emergency COMPLAINT: - HEART RATE ISSUE 07/28/2024 08:02 [facility] TYPE: Emergency COMPLAINT: - CHEST PAIN DIAGNOSES: - Allergy status to other drugs, medicaments and biological substances - Allergy status to serum and vaccine - Allergy to other foods - Latex allergy status - Other terminal computer operator (current) drug therapy - Other nonmedicinal substance allergy status - Palpitations - Personal history of nicotine dependence - Post-traumatic stress disorder, unspecified - Unspecified atrial fibrillation 05/29/2024 18:08 [facility] [place] TYPE: Emergency COMPLAINT: - CHEST PAIN INPATIENT VISIT TRACKING (12 MO.) 05/29/2024 20:18 [facility] TYPE: Critical Care COMPLAINT: - AFIB WITH RVR DIAGNOSES: - Acquired absence of other specified parts of digestive tract - Allergy status to narcotic agent - Allergy status to other drugs, medicaments and biological substances - Allergy status to serum and vaccine - Allergy to other foods - Anxiety disorder, unspecified - Benign intracranial hypertension - Body mass index [BMI] 60.0-69.9, adult - Borderline personality disorder - Chronic obstructive pulmonary disease, unspecified - Hypokalemia - Hypomagnesemia - Irritable bowel syndrome without diarrhea - Latex allergy status - terminal computer operator (current) use of anticoagulants - terminal computer operator (current) use of aromatase inhibitors - Migraine, unspecified, not intractable, without status migrainosus - Obesity, unspecified - Other specified postprocedural states - Personal history of nicotine dependence - Personal history of other venous thrombosis and embolism - Personal history of pulmonary embolism - Post-traumatic stress disorder, unspecified - Psoriasis, unspecified - Unspecified atrial fibrillation [email or web address]
[2024-08-02] MEDS ORDERED: atenoloL 25 MG TAB PO ONE (07:30)
[2024-08-02] MEDS ORDERED: LORazepam 1 MG TAB PO ONE (07:30)
[2024-08-02 09:16] VITALS: BP 136/92
--- NOTE | 2024-08-02 14:59 | EKG ---
[facility] [address] [place] [address] Signed Atrial fibrillation with rapid ventricular response Left axis deviation Minimal voltage criteria for LVH, may be normal variant ( Jeff product ) Abnormal ECG When compared with ECG of 28-JUL-2024 10:03, Atrial fibrillation has replaced Sinus rhythm Vent. rate has increased BY 45 BPM Confirmed by Dariela Anthony MD () on 08/02/2024 2:59:53 PM Electronically Signed By: DARIELA ANTHONY MD 08/02/24 1459 PATIENT NAME: JOYCE APARICIO Electrocardiogram DATE OF : 71 PHYSICIAN: DARIELA ANTHONY MD REPORT #: [id number] REPORT IS CONFIDENTIAL AND NOT TO BE RELEASED WITHOUT AUTHORIZATION
== END 2024-08-02 09:21 | disposition home or self-care (01) ==
LOC: ED 06:55
DX: I48.0 Paroxysmal atrial fibrillation (principal); J45.909 Unspecified asthma, uncomplicated; G43.909 Migraine, unspecified, not intractable, without status migrainosus; Z86.718 Personal history of other venous thrombosis and embolism; Z86.711 Personal history of pulmonary embolism; Z87.891 Personal history of nicotine dependence; Z88.8 Allergy status to other drugs, medicaments and biological substances; Z91.040 Latex allergy status; Z88.5 Allergy status to narcotic agent; Z88.7 Allergy status to serum and vaccine; Z91.018 Allergy to other foods; Z91.048 Other nonmedicinal substance allergy status; Z79.02 Long term (current) use of antithrombotics/antiplatelets; Z79.890 Hormone replacement therapy; Z79.899 Other long term (current) drug therapy
CPT/HCPCS: 36415; 84484; 93005; 93010; 99285; A9270-GY